=== PATIENT | male | born 1950 | race African-American/Black ===

== ENCOUNTER → 2016-09-28 | Outpatient (CLI) | payer OTHER ==
[~2016-09-28] MED LIST: ALBUTEROL17 G1 IH; AMLODIPINE BESY10 MG; BLOOD PRESSURE; CIPRO500 MG PO; FLEXERIL10 MG PO; FLONASE16 G1 BOTH NARES; HYDROCHLOROTH12.5 M3; HYDROCHLOROTHIA25 MG PO; INDOCIN50 MG PO; MIRALAX255 GM PO; MOBIC7.5 MG PO; MOTRIN600 MG PO; PROTONIX40 MG PO; SKELAXIN800 MG PO; TAMSULOSIN HCL0.4 MG; VENTOLIN HFA18 GM IH
== END | disposition home or self-care (01) ==
LOC: AMB 13:54
DX: R30.0 Dysuria (principal); R10.31 Right lower quadrant pain; Z53.9 Procedure and treatment not carried out, unspecified reason
CPT/HCPCS: 99211

== ENCOUNTER → 2016-10-12 | Outpatient (CLI) | payer OTHER | END | disposition home or self-care (01) | LOC: AMB 14:00 | DX: R97.20 Elevated prostate specific antigen [PSA] (principal); N40.0 Benign prostatic hyperplasia without lower urinary tract symptoms; H91.3 Deaf nonspeaking, not elsewhere classified; K21.9 Gastro-esophageal reflux disease without esophagitis; I10 Essential (primary) hypertension | CPT/HCPCS: 99212 ==

== ENCOUNTER → 2016-11-10 | Outpatient (CLI) | payer OTHER ==
[~2016-11-10] MED LIST changes: +FLONASE SENSIM9.9 ML BOTH NARES
== END | disposition home or self-care (01) ==
LOC: AMB 11-02 14:00
DX: R97.20 Elevated prostate specific antigen [PSA] (principal); R35.1 Nocturia; H91.90 Unspecified hearing loss, unspecified ear
CPT/HCPCS: 99211

== ENCOUNTER → 2016-12-08 | Outpatient (CLI) | payer OTHER | END | disposition home or self-care (01) | LOC: AMB 13:40 | DX: R97.20 Elevated prostate specific antigen [PSA] (principal); Z91.19 Patient's noncompliance with other medical treatment and regimen; N52.9 Male erectile dysfunction, unspecified; R35.0 Frequency of micturition | CPT/HCPCS: 99211 ==

== ENCOUNTER 2017-02-18 09:31 | Emergency (ER) | payer OTHER ==
[~2017-02-18] VITALS: Ht 175.3 cm; Wt 76.8 kg
[2017-02-18 10:38] LABS: ADD MIUA? YES; BILIRUBIN NEGATIVE; BLOOD NEGATIVE; COLOR YELLOW ((YELLOW)); GLUCOSE (STRIP) NEGATIVE; KETONES 5; LEUKOCYTES SMALL; NITRITE NEGATIVE; PROTEIN (STRIP) NEGATIVE; SPECIFIC GRAVITY 1.026 (1.000-1.030)
[2017-02-18 10:43] LABS: BACTERIA RARE /HPF; EPITHELIAL CELLS NONE SEEN /HPF; MUCUS 1+ /LPF; RED BLOOD CELLS 0-5 /HPF (0-5); UCUL ADDED? NO
[2017-02-18] MEDS ORDERED: KEFLEX500 MG PO (11:04)
[2017-02-18 11:18] VITALS: BP 137/83
== END 2017-02-18 11:20 | disposition home or self-care (01) ==
LOC: EME 09:31
PROVIDERS: Emergency Medicine
DX: N39.0 Urinary tract infection, site not specified (principal)
CPT/HCPCS: 81003; 99281; 99283

== ENCOUNTER 2017-05-17 18:27 | Emergency (ER) | payer OTHER ==
[~2017-05-17] VITALS: Ht 167.6 cm; Wt 74.8 kg
[~2017-05-17 18:27] MED LIST changes: +KEFLEX500 MG PO
[2017-05-17 18:33] VITALS: BP 149/83
[2017-05-17 19:11] LABS: ADD MIUA? YES; BILIRUBIN NEGATIVE; BLOOD NEGATIVE; COLOR YELLOW ((YELLOW)); GLUCOSE (STRIP) NEGATIVE; KETONES NEGATIVE; LEUKOCYTES TRACE; NITRITE NEGATIVE; PROTEIN (STRIP) NEGATIVE; SPECIFIC GRAVITY 1.019 (1.000-1.030)
[2017-05-17 19:17] LABS: BACTERIA NONE SEEN /HPF; EPITHELIAL CELLS RARE /HPF; MUCUS TRACE /LPF; RED BLOOD CELLS 0-5 /HPF (0-5); UCUL ADDED? NO; WHITE BLOOD CELLS 0-5 /HPF (0-5)
== END 2017-05-17 22:00 | disposition left against medical advice (07) ==
LOC: EME 18:27
DX: R30.0 Dysuria (principal)
CPT/HCPCS: 80048; 81003; 85027; 99281; 99284

== ENCOUNTER 2017-06-25 13:49 | Emergency (ER) | payer OTHER ==
[~2017-06-25] VITALS: Ht 172.7 cm; Wt 77.1 kg
[2017-06-25 15:38] LABS: ADD MIUA? NO; BILIRUBIN NEGATIVE; BLOOD NEGATIVE; COLOR STRAW ((YELLOW)); GLUCOSE (STRIP) NEGATIVE; KETONES NEGATIVE; LEUKOCYTES NEGATIVE; NITRITE NEGATIVE; PROTEIN (STRIP) NEGATIVE; UCUL ADDED? NO; UROBILINOGEN 0.2 MG/DL (0.2-1.0)
[2017-06-25 17:20] VITALS: BP 144/89
== END 2017-06-25 17:26 | disposition home or self-care (01) ==
LOC: EME 13:49
PROC: 0T9B70Z Drainage of Bladder with Drainage Device, Via Natural or Artificial Opening (ICD-10-PCS; principal; 2017-06-25)
DX: R33.9 Retention of urine, unspecified (principal)
CPT/HCPCS: 81003; 99281; 99284

== ENCOUNTER 2017-06-27 11:09 | Emergency (ER) | payer OTHER | END 2017-06-27 11:38 | disposition left against medical advice (07) | LOC: EME 11:09 | DX: Z96.0 Presence of urogenital implants (principal); Z53.21 Procedure and treatment not carried out due to patient leaving prior to being seen by health care provider ==

== ENCOUNTER 2017-06-27 12:44 | Emergency (ER) | payer OTHER ==
[~2017-06-27] VITALS: Ht 172.7 cm; Wt 76.3 kg
[2017-06-27 14:59] VITALS: BP 148/89
== END 2017-06-27 15:00 | disposition home or self-care (01) ==
LOC: EME 12:44
PROC: 0T2BX0Z Change Drainage Device in Bladder, External Approach (ICD-10-PCS; principal; 2017-06-27)
DX: T83.9XXA Unspecified complication of genitourinary prosthetic device, implant and graft, initial encounter (principal); R33.9 Retention of urine, unspecified; H91.90 Unspecified hearing loss, unspecified ear
CPT/HCPCS: 99281; 99283

== ENCOUNTER → 2017-08-24 | Outpatient (CLI) | payer MEDICARE ==
[~2017-08-24] MED LIST changes: +COLACE100 MG PO
== END | disposition home or self-care (01) ==
LOC: CDC 12:16
DX: Z01.810 Encounter for preprocedural cardiovascular examination (principal); R94.31 Abnormal electrocardiogram [ECG] [EKG]
CPT/HCPCS: 93000

== ENCOUNTER 2017-09-09 05:26 | Day surgery (SDC) | payer OTHER ==
[~2017-09-09] VITALS: Ht 175.3 cm; Wt 79.0 kg
[~2017-09-09 05:26] MED LIST changes: +INHALER IH
[2017-09-09 06:07] VITALS: BP 194/94
[2017-09-09 06:21] LABS: BASOPHIL (%) 1.7 % (0-1); BASOPHIL COUNT 0.1 K/uL (0-0.1); EOSINOPHIL (%) 5.9 % (0-5); EOSINOPHIL COUNT 0.3 K/uL (0-0.3); HEMOGLOBIN 13.8 G/DL (12.5-16.6); LYMPHOCYTE (%) 36.6 % (15-42); LYMPHOCYTE COUNT 1.6 K/uL (1.0-2.8); MCHC 32.9 G/DL (30.0-36.0); MCV 82.2 FL (86-99); MONOCYTE (%) 8.5 % (3-12); MONOCYTE COUNT 0.4 K/uL (0-0.8); NEUTROPHIL (%) 47.3 % (45-76); PLATELET COUNT 330 K/uL (156-360); RBC DIS.WIDTH-CV 12.2 % (11.8-14.6); RED BLOOD COUNT 5.11 M/uL (4.00-5.50); WHITE BLOOD COUNT 4.2 K/uL (4.1-10.2)
[2017-09-09 06:38] LABS: CHLORIDE 103 MEQ/L (99-109); POTASSIUM 3.6 MEQ/L (3.7-5.4); SODIUM 140 MEQ/L (136-147)
[2017-09-09 06:43] LABS: CREATININE 1.1 MG/DL (0.6-1.3); GFR ESTIMATE (CALCULATED) > 59 mL/min/ (58.99-99999); GLUCOSE 109 mg/dL (70-99); UREA NITROGEN (BUN) 16 mg/dL (9-23)
[2017-09-09 12:41] VITALS: BP 194/94
[2017-09-09 13:23] VITALS: BP 172/80
== END 2017-09-09 13:45 | disposition home or self-care (01) ==
LOC: SDC 05:26
PROVIDERS: Urology
PROC: 0DJD7ZZ Inspection of Lower Intestinal Tract, Via Natural or Artificial Opening (ICD-10-PCS; principal; 2017-09-09)
PROC: 0VB03ZX Excision of Prostate, Percutaneous Approach, Diagnostic (ICD-10-PCS; principal; 2017-09-09)
PROC: BD4CZZZ Ultrasonography of Rectum (ICD-10-PCS; principal; 2017-09-09)
DX: C61 Malignant neoplasm of prostate (principal); H91.93 Unspecified hearing loss, bilateral
CPT/HCPCS: 80048; 85025; 88305; 88341 TC; 88342 TC; J0131; J1170; J2250; J2405; J3010

== ENCOUNTER → 2017-10-25 | Outpatient (CLI) | payer OTHER | END | disposition home or self-care (01) | LOC: AMB 13:18 | DX: C61 Malignant neoplasm of prostate (principal); H91.90 Unspecified hearing loss, unspecified ear; J45.909 Unspecified asthma, uncomplicated; K21.9 Gastro-esophageal reflux disease without esophagitis; I10 Essential (primary) hypertension; Z87.19 Personal history of other diseases of the digestive system | CPT/HCPCS: 99211 ==

== ENCOUNTER → 2018-01-10 | Outpatient (CLI) | payer OTHER | END | disposition home or self-care (01) | LOC: AMB 14:30 | DX: C61 Malignant neoplasm of prostate (principal); Z53.29 Procedure and treatment not carried out because of patient's decision for other reasons ==

== ENCOUNTER → 2018-01-27 | Outpatient (CLI) | payer OTHER | END | disposition home or self-care (01) | LOC: AMB 14:00 | DX: Z08 Encounter for follow-up examination after completed treatment for malignant neoplasm (principal); C61 Malignant neoplasm of prostate; I10 Essential (primary) hypertension; J45.909 Unspecified asthma, uncomplicated; K21.9 Gastro-esophageal reflux disease without esophagitis; H91.90 Unspecified hearing loss, unspecified ear; M19.90 Unspecified osteoarthritis, unspecified site; Z92.3 Personal history of irradiation | CPT/HCPCS: 99212 ==